=== PATIENT | male | born 1960 | race Caucasian/White ===

== ENCOUNTER 2016-05-30 01:14 | Emergency (ER) | payer OTHER ==
[~2016-05-30] VITALS: Ht 172.7 cm; Wt 86.2 kg
[~2016-05-30 01:14] MED LIST: ATIVAN1 M1 PO; PRILOSEC40 MG PO; SIMVASTATIN20 MG PO
[2016-05-30 01:22] VITALS: BP 140/88
--- NOTE | 2016-05-30 02:23 | NUR ---
TO ER BED 5
--- NOTE | 2016-05-30 02:28 | NUR ---
PT IS 55/M BIB SELF TO ED WITH C/O ABDOMINAL PAIN X 5 HR. N/V WITH ABDOMINAL PAIN AFTER EATING WELSH FOOD AT 2000. PT STATES HX.HLD, GERD. DENIES D; SKIN IS PINK/WARM/DRY; AAOX4 WITH EVEN AND STEADY GAIT; LUNGS CLEAR BL; HR EVEN AND REGULAR; PT DENIES ANY FEVER, CP, SOB, OR COUGH AT THIS TIME; PATIENT STATES PAIN OF 5/10 AT THIS TIME; VSS; PATIENT POSITIONED FOR COMFORT; HOB ELEVATED; BEDRAILS UP X2; BED DOWN. ER MD MADE AWARE OF PT STATUS.
[2016-05-30] MEDS ORDERED: NACL 0.9% 1,000 ML IV ONE (03:00)
[2016-05-30] MEDS ORDERED: ONDANSETRON 4 MG/2 ML VIAL IVP ONE (03:00)
[2016-05-30] MEDS ORDERED: KETOROLAC 30 MG/ML VIAL IVP ONE (04:10)
[2016-05-30 04:36] VITALS: BP 128/78
--- NOTE | 2016-05-30 04:36 | NUR ---
Patient discharged with v/s stable. Written and verbal after care instructions given and explained. Patient alert, oriented and verbalized understanding of instructions. Ambulatory with steady gait. All questions addressed prior to discharge. ID band removed. Patient advised to follow up with PMD. Rx of TRAMADOL HYDROCHLORIDE AND ZOFRAN ODT given. Patient educated on indication of medication including possible reaction and side effects. Opportunity to ask questions provided and answered.
== END 2016-05-30 04:36 | disposition home or self-care (01) ==
LOC: MED 01:14
DX: T62.8X1A Toxic effect of other specified noxious substances eaten as food, accidental (unintentional), initial encounter (principal); R03.0 Elevated blood-pressure reading, without diagnosis of hypertension; Y92.89 Other specified places as the place of occurrence of the external cause
CPT/HCPCS: 96361; 96374; 96375; 99284; J1885; J2405; J7030